=== PATIENT | male | born 1980 | race African-American/Black ===

== ENCOUNTER 2019-07-28 10:53 | Emergency (ER) | payer MEDICAID ==
[~2019-07-28] VITALS: Ht 167.6 cm; Wt 63.0 kg
[2019-07-28 11:12] VITALS: BP 126/82
[2019-07-28] MEDS ORDERED: LIDOCAINE HCL/PF 1% 10 MG/ML 5ML VIAL IJ ONE (13:30)
[2019-07-28] MEDS ORDERED: BACITRACIN ZINC OINT UDPKT TOP ONE (13:30)
== END 2019-07-28 15:55 | disposition home or self-care (01) ==
LOC: ER 11:24
DX: L03.317 Cellulitis of buttock (principal); Z88.6 Allergy status to analgesic agent
CPT/HCPCS: 10060; 99283; J3490